=== PATIENT | male | born 1990 ===

== ENCOUNTER 2016-03-27 12:01 | Emergency (ER) | payer SELFPAY ==
[~2016-03-27] VITALS: Ht 180.3 cm; Wt 85.0 kg
[2016-03-27 12:03] VITALS: BP 127/75; PULSE 102; RESP 15; TEMP 98.2; O2SAT 98
== END 2016-03-27 16:17 | disposition left against medical advice (07) ==
LOC: NED 12:01
DX: L98.9 Disorder of the skin and subcutaneous tissue, unspecified (principal)
CPT/HCPCS: 99281